=== PATIENT | female | born 1990 | race Caucasian/White ===

== ENCOUNTER 2020-09-23 00:41 | Emergency (ER) | payer OTHER ==
[2020-09-23 00:50] VITALS: BP 126/98; PULSE 86; RESP 20; TEMP 97.8
[2020-09-23] MEDS ORDERED: ONDANSETRON ODT 4 MG TAB PO STA (01:02)
--- NOTE | 2020-09-23 01:46 | ED ---
General Adult HPI - General Chief complaint: ENT Stated complaint: Possible allergic reaction Time Seen by Provider: 09/23/20 00:50 Source: patient Mode of arrival: ambulatory Limitations: no limitations - History of Present Illness Initial comments: 29-year-old female patient presents to the emergency department today for evaluation of nausea and a fuzzy feeling to her face and throat. States she started having symptoms couple of hours ago. States she did have a couple episodes of vomiting. She is 23 weeks having good movement. De nies any fever or chills. Denies cough or congestion. Denies any dizziness or weakness. States that she did have a cat sitting on her pillow she is unsure why be ALLERGIC reaction that she's never had one for. Denies any new medications. She denies any rash or hives. Denies any lip or tongue swelling. Patient denies any recent cough, shortness of breath, chest pain, abdominal pain, diarrhea, constipation, back pain, numbness, tingling, dizziness, weakness, hematuria, dysuria, urinary urgency, urinary frequency, headache, visual changes, or any other complaints. - Related Data Allergies Allergy/AdvReac Type Severity Reaction Status Date / Time No Known Allergies Allergy Verified 09/23/20 00:49 Review of Systems ROS Statement: Those systems with pertinent positive or pertinent negative responses have been documented in the HPI. ROS Other: All systems not noted in ROS Statement are negative. Past Medical History Past Medical History: No Reported History History of Any Multi-Drug Resistant Organisms: None Reported Past Surgical History: No Surgical Hx Reported Past Psychological History: No Psychological Hx Reported Smoking Status: Former smoker Past Alcohol Use History: None Reported Past Drug Use History: Marijuana General Exam Limitations: no limitations General appearance: alert, in no apparent distress, other (This is a well- developed, well-nourished adult female patient in no acute distress. Vital signs upon presentation are temperature 97.8F and pulse 86, respirations 20, blood pressure 126/98) Eye exam: Present: normal appearance, PERRL, EOMI. Absent: scleral icterus, conjunctival injection, periorbital swelling ENT exam: Present: normal exam, normal oropharynx, mucous membranes moist Respiratory exam: Present: normal lung sounds bilaterally. Absent: respiratory distress, wheezes, rales, rhonchi, stridor Cardiovascular Exam: Present: regular rate, normal rhythm, normal heart sounds. Absent: systolic murmur, diastolic murmur, rubs, gallop, clicks GI/Abdominal exam: Present: soft, normal bowel sounds. Absent: distended, tenderness, guarding, rebound, rigid Neurological exam: Present: alert, oriented X3, CN II-XII intact Psychiatric exam: Present: normal affect, normal mood Skin exam: Present: warm, dry, intact, normal color. Absent: rash Course Vital Signs 09/23/20 00:46 Temperature 97.8 F Pulse Rate 86 Respiratory 20 Rate Blood Pressure 126/98 Medical Decision Making - Medical Decision Making 29-year-old male patient presents to the emergency department today for evaluation of fuzzy feeling to her face and throat. Also reports nausea and vomiting. She has had a lot of morning sickness with her she is currently 23 weeks , G1, P0. She does feel frequent movements. Physical examination is unremarkable. Tested for Covid it was negative. She was given Zofran. Upon reevaluation she is resting complaint bed. States she feels much better. She'll be discharged fall with her primary care physician for recheck in 1-2 days. She is instructed to follow up with her [facility] for recheck as soon as possible. Return parameters were discussed in detail and she verbalizes understanding and agrees with this plan. Dr. Jensen is my attending. - Lab Data Lab Results 09/23/20 Range/Units 01:50 Coronavirus (PCR) Not Detected (Not Detectd) Disposition Clinical Impression: Vomiting Disposition: HOME SELF-CARE Condition: Good Instructions (If sedation given, give patient instructions): Acute Nausea and Vomiting (ED) Additional Instructions: Take medication sparingly. Follow-up with your [facility] for recheck as as possible. Return to the emergency department for any new, worsening, or concerning symptoms. Is patient prescribed a controlled substance at d/c from ED?: No Referrals: None,Stated [Primary Care Provider] - 1-2 days Time of Disposition: 02:40
[2020-09-23] MEDS ORDERED: ONDANSETRON 4 MG ODT STARTER PACK 2 TAB BTL PO STA (02:40)
== END 2020-09-23 02:58 | disposition home or self-care (01) ==
LOC: EC 00:41
DX: O21.2 Late vomiting of pregnancy (principal); Z3A.23 23 weeks gestation of pregnancy; Z87.891 Personal history of nicotine dependence; Z20.822 Contact with and (suspected) exposure to COVID-19
CPT/HCPCS: 87635; 99283; S0119